=== PATIENT | female | born 1960 | race Caucasian/White ===

== ENCOUNTER → 2016-09-02 | Outpatient (CLI) | payer BC ==
[~2016-09-02] MED LIST: ASPI-390 PO; CALC500T68 PO; CITA40TA4 PO; DICL75TA2 PO; DICY10CA12 PO; ERGO1CAP41 PO; ESCI5TAB PO; IBUP1CAP9 PO; LEVO100T PO; LEVO88TA PO; MULT-506 PO; PROM25TA PO; PROM25TA10 PO; PROP20TA67 PO; RIZA10TA18 PO
--- NOTE | 2016-09-02 14:56 | DIAGNOSTIC IMAGING REPORT ---
KUB HISTORY: Kidney stones. COMPARISON: KUB 05/19/2015. FINDINGS: The bowel gas pattern is unremarkable. There are no dilated loops of small bowel to suggest an obstruction. There are 2 stones within the lower pole the left kidney with the largest measuring 4 mm. No right renal calculi. No definite ureteral calculi. Calcifications in the deep pelvis remain stable and likely represent phleboliths. No pneumoperitoneum or pneumatosis. IMPRESSION: Left-sided nephrolithiasis. Electronically signed by: Brandon Godfrey M.D. 09/02/2016 2:55 PM Dictated Date/Time: 09/02/2016 2:54 PM
== END | disposition home or self-care (01) ==
LOC: C.RAD 14:26
PROVIDERS: ATTEND Urology
DX: N20.0 Calculus of kidney (principal)

== ENCOUNTER → 2016-12-07 | Outpatient (CLI) | payer BC ==
[~2016-12-07] MED LIST changes: -ESCI5TAB PO; -IBUP1CAP9 PO; -LEVO100T PO; -MULT-506 PO; -PROM25TA10 PO; -PROP20TA67 PO
--- NOTE | 2016-12-07 16:45 | DIAGNOSTIC IMAGING REPORT ---
KUB HISTORY: Follow-up study in a patient with nephrolithiasis N20.0 Bilateral kidney stones COMPARISON: KUB 09/02/2016. FINDINGS: The bowel gas pattern is non-obstructive. There is no organomegaly. 4 mm calculus of the lower pole left kidney redemonstrated. No definite ureteral calculi identified. No pneumoperitoneum or pneumatosis. No fracture. IMPRESSION: Left-sided nephrolithiasis redemonstrated. No definite ureteral calculus identified. Electronically signed by: Noé Chan M.D. 12/07/2016 4:44 PM Dictated Date/Time: 12/07/2016 4:42 PM
== END | disposition home or self-care (01) ==
LOC: C.RAD 16:21
PROVIDERS: ATTEND Urology
DX: K20.0 Eosinophilic esophagitis (principal)

== ENCOUNTER → 2016-12-16 | Outpatient (CLI) | payer BC ==
[~2016-12-16] MED LIST changes: -ASPI-390 PO; -CALC500T68 PO; -CITA40TA4 PO; -DICL75TA2 PO; -ERGO1CAP41 PO; +ESCI5TAB PO; +IBUP1CAP9 PO; +LEVO100T PO; -LEVO88TA PO; +MULT-506 PO; -PROM25TA PO; +PROM25TA10 PO; +PROP20TA67 PO
--- NOTE | 2016-12-16 16:36 | DIAGNOSTIC IMAGING REPORT ---
CHEST 2 VIEWS ROUTINE CLINICAL HISTORY: 56 years-old Female presenting with NEPHROLITHIASIS. TECHNIQUE: PA and lateral views of the chest were obtained. COMPARISON: 03/02/2010. FINDINGS: Cardiomediastinal silhouette normal. Mild hyperinflation. Lungs and pleural spaces clear. Osseous structures normal. Upper abdomen normal. IMPRESSION: 1. No acute cardiopulmonary disease. Electronically signed by: Bernabe Soares M.D. 12/16/2016 4:34 PM Dictated Date/Time: 12/16/2016 4:33 PM
== END | disposition home or self-care (01) ==
LOC: C.RAD 16:18
PROVIDERS: ATTEND Urology
DX: N20.0 Calculus of kidney (principal)

== ENCOUNTER → 2016-12-19 | Outpatient (CLI) | payer BC | END | disposition home or self-care (01) | LOC: C.LABSPEC 15:42 | PROVIDERS: ATTEND Obstetrics & Gynecology | DX: N89.8 Other specified noninflammatory disorders of vagina (principal) ==

== ENCOUNTER → 2017-02-20 | Outpatient (CLI) | payer BC ==
[~2017-02-20] MED LIST changes: +OXYC7.5T65 PO
== END | disposition home or self-care (01) ==
LOC: C.PAPS 15:36
PROVIDERS: ATTEND Obstetrics & Gynecology
DX: Z01.419 Encounter for gynecological examination (general) (routine) without abnormal findings (principal)